=== PATIENT | female | born 1985 | race Hispanic/Latino ===

== ENCOUNTER 2017-09-01 11:27 | Emergency (ER) | payer OTHER ==
[2017-09-01 11:49] VITALS: BP 106/71; PULSE 110; RESP 17; TEMP 98.6; O2SAT 97
--- NOTE | 2017-09-01 12:08 | ED PDOC ---
Arrival/HPI - General Chief Complaint: Flu-like Symptoms Time Seen by Provider: 09/01/17 11:28 Historian: Patient - History of Present Illness Narrative History of Present Illness (Text): 09/01/17 12:04 A 31 year old female, with no significant past medical history, presents to the emergency department complaining of cough and congestion for 2 days. Patient reports taking her daughter to the doctor for strep throat. Afterwards, patient began experiencing symptoms and has been unable to sleep. Patient denies any sore throat, chills, fever, chest pain, abdominal pain, nausea, vomiting, diarrhea, or any other complaints. No PMD Time/Duration: < week (2 days) Past Medical History - Provider Review Nursing Documentation Reviewed: Yes - Psychiatric Hx Psychophysiologic Disorder: No Hx Substance Use: No Family/Social History - Physician Review Nursing Documentation Reviewed: Yes Family/Social History: No Known Family HX Smoking Status: Heavy Smoker > 10 Cigarettes Daily Hx Alcohol Use: No Hx Substance Use: No Allergies/Home Meds Allergies/Adverse Reactions: Allergies No Known Allergies Allergy (Verified 09/01/17 11:45) Review of Systems - Physician Review All systems were reviewed & negative as marked: Yes - Review of Systems Constitutional: absent: Fevers, Night Sweats ENT: Sinus Congestion Respiratory: Cough Gastrointestinal: absent: Abdominal Pain, Diarrhea, Nausea, Vomiting Physical Exam Vital Signs Reviewed: Yes Vital Signs Temp Pulse Resp BP Pulse Ox 09/01/17 11:48 98.6 F 110 H 17 106/71 97 Temperature: Afebrile Blood Pressure: Normal Pulse: Regular Respiratory Rate: Normal Appearance: Positive for: Well-Appearing Pain Distress: None Mental Status: Positive for: Alert and Oriented X 3 - Systems Exam Head: Present: Atraumatic, Normocephalic Pupils: Present: PERRL Extroacular Muscles: Present: EOMI Conjunctiva: Present: Normal Mouth: Present: Moist Mucous Membranes Pharnyx: Present: ERYTHEMA Neck: Present: Normal Range of Motion Respiratory/Chest: Present: Clear to Auscultation, Good Air Exchange. No: Respiratory Distress, Accessory Muscle Use Cardiovascular: Present: Regular Rate and Rhythm, Normal S1, S2. No: Murmurs Abdomen: Present: Normal Bowel Sounds. No: Tenderness, Distention, Peritoneal Signs Back: Present: Normal Inspection Upper Extremity: Present: Normal Inspection. No: Cyanosis, Edema Lower Extremity: Present: Normal Inspection. No: Edema Neurological: Present: GCS=15, CN II-XII Intact, Speech Normal Skin: Present: Warm, Dry, Normal Color. No: Rashes Psychiatric: Present: Alert, Oriented x 3, Normal Insight, Normal Concentration Medical Decision Making ED Course and Treatment: 09/01/17 12:06 Impression: 31 year old female with cough and congestion. Physical exam overall is benign; pharynx minimal erythematous, no exudate. pt requests empiric tx for flu. Plan: -- Tamiflu -- Reassess and disposition Progress Notes: 09/01/17 16:01 - Medication Orders Current Medication Orders: Discontinued Medications Oseltamivir Phosphate (Tamiflu Cap) 75 mg PO STAT STA PRN Reason: Protocol Stop: 09/01/17 12:05 Last Admin: 09/01/17 12:17 Dose: 75 mg - Scribe Statement The provider has reviewed the documentation as recorded by the Shannan Michelle Provider Scribe Attestation: All medical record entries made by the Shemaribe were at my direction and personally dictated by me. I have reviewed the chart and agree that the record accurately reflects my personal performance of the history, physical exam, medical decision making, and the department course for this patient. I have also personally directed, reviewed, and agree with the discharge instructions and disposition. Disposition/Present on Arrival - Present on Arrival Any Indicators Present on Arrival: No History of DVT/PE: No History of Uncontrolled Diabetes: No Urinary Catheter: No History of Decub. Ulcer: No History Surgical Site Infection Following: None - Disposition Have Diagnosis and Disposition been Completed?: Yes Diagnosis: Influenza-like illness Disposition: HOME/ ROUTINE Disposition Time: 07:00 Condition: STABLE Discharge Instructions (ExitCare): Viral Syndrome (ED) Additional Instructions: follow up with your doctor. return to er with worsening symptoms or concerns. Prescriptions: Oseltamivir Phosphate [Tamiflu] 75 mg PO BID #10 capsule Referrals: [facility] [Outside] - Follow up with primary [facility] [Outside] - Follow up with primary Forms: [employer] (Beninese)
== END 2017-09-01 12:18 | disposition home or self-care (01) ==
LOC: ED 11:27
DX: J11.1 Influenza due to unidentified influenza virus with other respiratory manifestations (principal); F17.210 Nicotine dependence, cigarettes, uncomplicated